=== PATIENT | female | born 1945 | race Caucasian/White ===

== ENCOUNTER 2024-03-18 13:03 | Emergency (ER) | payer OTHER, SELFPAY ==
--- NOTE | 2024-03-18 13:06 | ED.GENMED ---
ED Provider Triage
<Oleksandr Chambers Jr., PA-C - Last Filed: 03/18/24 13:07>
-
Patient seen by provider in Triage?: Seen in Triage
Attestation: A medical screening examination has been initiated by a qualified medical provider. Based on the assessment performed at this time, it has been determined that an emergent medical condition may exist and the patient has been informed
that further medical evaluation and possible additional diagnostic testing may be needed.
HPI: 78-year-old female presenting to the emergency department with a short episode of central chest pain lasting for roughly 10 minutes. Fully resolved at this point. Given aspirin en route. Plan for cardiac assessment.
GENERAL: Alert , in no apparent distress
EYE: No visual abnormalities.
NECK: Trachea midline
ENT: No visible abnormalities.
LUNGS: No acute respiratory distress
NEUROLOGICAL: Alert and oriented
SKIN: Skin intact. No visible changes.
MUSCULOSKELETAL: Moving extremities normally
PSYCH: Normal and appropriate interaction.
This is a medical evaluation conducted in person to initiate diagnostic evaluation and provide initial therapeutics. Please see further documentation by the treating clinician.
History of Present Illness
<Oleksandr Chambers Jr., PA-C - Last Filed: 03/18/24 13:07>
General
Chief Complaint: Chest Pain
Time Seen by Provider: 03/18/24 15:03
<Dom Patterson DO - Last Filed: 03/18/24 22:17>
History of Present Illness
History of Present Illness:
Agreed HPI by Mohsen Chambers
Past History
<Oleksandr Chambers Jr., PA-C - Last Filed: 03/18/24 13:07>
Past History
ED Past Medical History: None
ED Past Surgical History: Gynecological
Social History
Tobacco: Non-smoker
<Dom Patterson DO - Last Filed: 03/18/24 22:17>
Social History
Alcohol: None
Drug: None
Personal: Partner
Living: with family
Review of Systems
<Dom Patterson, DO - Last Filed: 03/18/24 22:17>
Review of Systems
Allergies reviewed?: Yes
All Other Systems: Not applicable
Constitutional: Reports no symptoms
EENT: Reports no symptoms
Respiratory: Reports no symptoms
Cardiac: Reports chest pain
ABD/GI: Reports no symptoms
: Reports no symptoms
Musculoskeletal: Reports no symptoms
Skin: Reports no symptoms
Neurological: Reports no symptoms
Endocrine: Reports no symptoms
Hematologic/Lymphatic: Reports no symptoms
Psychiatric: Reports no symptoms
Phy Exam
<Dom Patterson, DO - Last Filed: 03/18/24 22:17>
Physical Exam
Physical Exam:
Insert physical
Physical Exam
General: no apparent distress, not acutely ill
Neck: supple. no meningeal signs. normal posterior pharynx
Heart: s1/s2 regular rate and rhythm, no murmur. equal radial
pulses.
HEENT: Pupils equal round reactive to light, EOMI
Lungs: no acute respiratory distress. clear bilaterally
Abdomen: normal bowel sounds. not tender. no CVAT
Neuro: alert and oriented. no focal neurological deficits cranial nerves II through XII intact
Skin: no rash
Psychiatric: well kept. interactive and cooperative
Extremities: no edema. no calf tenderness. negative homans. good distal pulses
Scores
<Dom Patterson, DO - Last Filed: 03/18/24 22:17>
Heart Score for Chest Pain Patients
STEMI patient?: No
History: Slightly or Non-Suspicious
ECG: Normal
Age: >/= 65 years
Risk Factors: No Risk Factors
Troponin: </= Normal Limit
Heart Score for Chest Pain Patients: 2
Heart Score Risk: 2.5% MACE over next 6 weeks
Course
<Oleksandr Chambers Jr., PA-C - Last Filed: 03/18/24 13:07>
Orders/Labs/Results
Orders:
Orders
03/18/24
Electrocardiogram (*1) Stat
Comment: DONE EMR
03/18/24 13:06
Electrocardiogram (*1) Urgent
Reason for Study: Chest Pain
EKG- Treatment ONCE
EKG- Treatment ONCE
CR Chest - 2 Views Urgent
Comment:
Reason For Exam: cp
03/18/24 13:23
Complete Blood Count/With Diff Urgent
Comprehensive Metabolic Panel Urgent
Magnesium Urgent
Troponin I Urgent
03/18/24 15:33
Troponin I Urgent
Abnormal Lab Results
03/18/24
13:23
WBC 4.2 L 10^3/uL
(4.8-10.8)
RBC 4.14 L 10^6/uL
(4.20-5.40)
Immature Gran % 0.7 H %
(0-0.5)
Monocytes % 15.4 H %
(1.7-9.3)
03/18/24 13:23
03/18/24 13:23
Vital Signs
Initial and Last Documented VS:
Initial Vital Signs
Temp Pulse Resp BP Pulse Ox
97.7 F 82 18 156/88 96
03/18/24 13:07 03/18/24 13:07 03/18/24 13:07 03/18/24 13:07 03/18/24 13:07
Last Documented Vital Signs
Temp Pulse Resp BP Pulse Ox
97.7 F 82 18 156/88 96
03/18/24 13:07 03/18/24 13:07 03/18/24 13:07 03/18/24 13:07 03/18/24 13:07
<Dom Patterson, DO - Last Filed: 03/18/24 22:17>
Orders/Labs/Results
Orders:
Orders
03/18/24
Electrocardiogram (*1) Stat
Comment: DONE EMR
03/18/24 13:06
Electrocardiogram (*1) Urgent
Reason for Study: Chest Pain
EKG- Treatment ONCE
EKG- Treatment ONCE
CR Chest - 2 Views Urgent
Comment:
Reason For Exam: cp
03/18/24 13:23
Complete Blood Count/With Diff Urgent
Comprehensive Metabolic Panel Urgent
Magnesium Urgent
Troponin I Urgent
03/18/24 15:33
Troponin I Urgent
Abnormal Lab Results
03/18/24
13:23
WBC 4.2 L 10^3/uL
(4.8-10.8)
RBC 4.14 L 10^6/uL
(4.20-5.40)
Immature Gran % 0.7 H %
(0-0.5)
Monocytes % 15.4 H %
(1.7-9.3)
03/18/24 13:23
03/18/24 13:23
Vital Signs
Initial and Last Documented VS:
Initial Vital Signs
Temp Pulse Resp BP Pulse Ox
97.7 F 82 18 156/88 96
03/18/24 13:07 03/18/24 13:07 03/18/24 13:07 03/18/24 13:07 03/18/24 13:07
Last Documented Vital Signs
Temp Pulse Resp BP Pulse Ox
97.7 F 82 18 156/88 96
03/18/24 13:07 03/18/24 13:07 03/18/24 13:07 03/18/24 13:07 03/18/24 13:07
<Dom Patterson DO - Last Filed: 03/18/24 22:17>
MDM/Problems Addressed
Differential Diagnosis Includes:
ACS, PE, pneumonia
MDM/Problems Addressed:
78-year-old female with chest pain, unlikely ACS. Serial troponins negative. Normal EKG. Doubt PE. Stable for discharge and follow-up with cardiology.
<Dom Patterson DO - Last Filed: 03/18/24 22:17>
*Radiology
Radiology exam reviewed: preliminary read by ED provider (cxr nad)
*Pulse Oximetry
Patient hypoxic: no
*EKG
Interpreted by ED Provider?: Yes
EKG Intrepretation Date: 03/18/24
EKG Intrepretation Time: 13:15
Interpretation: abnormal
Comparison EKG: no changes
Heart Rate: 73
Rate: normal
Rhythm: sinus and PVC's
[place]: normal axis
Interval: normal interval
QRS Pattern: normal QRS
Ischemia: no ischemia
*Critical Care Note
Total Time (30-74mins, 75-104mins- exclusive of procedures): Not Applicable
ED Attending Note
<Oleksandr Chambers Jr. PASharon - Last Filed: 03/18/24 13:07>
-
Portions of this chart may have been created with voice recognition software.� Occasional wrong word or��sound alike� substitutions may have occurred due to the inherent limitations of voice recognition software.
Discharge Plan
Departure
Patient Disposition: Home (Routine Discharge)
Date of Disposition: 03/18/24
Time of Disposition: 16:18
Patient with high blood pressure during this ER visit?: Yes
Condition: Good
Discharge Problem:
Chest pain
Instructions: Chest Pain CBC Follow Up, BLOOD PRESSURE
Referrals:
Kermit Chadwick MD [Family Provider] -
Interventions
Interventions:
*Risk Screen - Suicide Last Done: 03/18/24 16:34
*General Assessment Last Done: 03/18/24 16:41
*Neglect/Abuse Screening Last Done: 03/18/24 16:34
ED- Fall Risk Assessment Last Done: 03/18/24 16:41
*ED COVID-19 Vaccine History Last Done: 03/18/24 16:41
*Nursing Disposition Last Done: 03/18/24 16:41
ED- Cardiac Assessment Last Done: 03/18/24 16:33
Discharge Date and Time
Discharge Date/Time: 03/18/24 16:42
Print Language: BAHAMIAN
[2024-03-18 13:07] VITALS: BP 156/88
[2024-03-18 13:44] LABS: % Basophils 0.5 % (0-2); % Eosinophils 2.2 % (0-6); % Immature Granulocytes 0.7 % (0-0.5); % Lymphocytes 30.5 % (20.5-51.1); % Monocytes 15.4 % (1.7-9.3); % Neutrophils 50.7 % (42.2-75.2); Absolute Eosinophils 0.1 10^3/uL (0-0.7); Absolute Lymphocytes 1.3 10^3/uL (1.2-3.4); Absolute Monocytes 0.6 10^3/uL (0.1-0.6); Absolute Neutrophils 2.1 10^3/uL (1.4-6.5); Hematocrit 38.8 % (37.0-47.0); Hemoglobin 12.8 g/dL (12.0-16.0); Mean Corpuscular Hgb 30.9 pg (27.0-31.0); Mean Corpuscular Volume 93.7 fL (81.0-99.0); Mean Platelet Volume 8.9 fL (7.4-10.4); Nucleated Red Blood Cells % 0 %; Platelet Count 186 10^3/uL (130-400); Red Blood Cell Count 4.14 10^6/uL (4.20-5.40); Red Cell Dist. Width 13.3 % (11.5-14.5); White Blood Cell Count 4.2 10^3/uL (4.8-10.8)
[2024-03-18 13:53] LABS: ALT (SGPT) 20 U/L (0-35); AST (SGOT) 23 U/L (14-36); Albumin 3.8 g/dl (3.5-5.0); Alkaline Phosphatase 78 U/L (38-126); Blood Urea Nitrogen 17 mg/dl (7-17); Calcium 8.7 mg/dl (8.4-10.2); Carbon Dioxide 29 mmol/L (22-30); Chloride 103 mmol/L (98-107); Glucose 95 mg/dl (70-99); Magnesium 2.2 mg/dl (1.6-2.3); Potassium 4.8 mmol/L (3.5-5.1); Sodium 138 mmol/L (135-145); Total Bilirubin 0.6 mg/dl (0.2-1.3); Total Protein 6.5 g/dl (6.3-8.2); eGFR > 60.00
[2024-03-18 14:05] LABS: Troponin I < 0.012 ng/ml
[2024-03-18 16:12] LABS: Troponin I < 0.012 ng/ml
== END 2024-03-18 16:42 | disposition home or self-care (01) ==
LOC: EMR 13:03
PROVIDERS: Physician Assistant; EMERGENCY PHYSICIAN Emergency Medicine; FAMILY PHYSICIAN Internal Medicine
DX: R07.89 Other chest pain (principal); I49.3 Ventricular premature depolarization
CPT/HCPCS: 99283; 71046; 80053; 83735; 84484; 85025; 93005

== ENCOUNTER → 2024-04-30 13:29 | Outpatient (REF) | payer OTHER, SELFPAY | LOC: RCS 13:29 | PROVIDERS: ATTENDING PHYSICIAN Internal Medicine Cardiovascular Disease; FAMILY PHYSICIAN Internal Medicine | DX: R07.89 Other chest pain (principal); K21.9 Gastro-esophageal reflux disease without esophagitis | CPT/HCPCS: 93306 ==

== ENCOUNTER → 2024-05-02 08:39 | Outpatient (REF) | payer OTHER, SELFPAY ==
--- NOTE | 2024-05-02 10:38 | CARDSERVLU ---
Echocardiogram with [facility] completed after protocol screening completed. Allergies verified.
Patent IV site: __Left arm 22 G PC inserted first attempt, site clear___
IV site flushed with 0.9% NaCl pre and post administration.
Diluted bolus method utilized to enhance visualization of ventricular florian.
Total volume given: _5___ mL
Patient tolerated all procedures well without complications.
Heplock D/c ed at 1029, site clear, no redness, no edema. Pressure held, no bleeding. 2x2 applied and taped. Pt offers no complaints.
== END ==
LOC: RCS 08:39
PROVIDERS: ATTENDING PHYSICIAN Internal Medicine Cardiovascular Disease; FAMILY PHYSICIAN Internal Medicine
DX: R07.89 Other chest pain (principal); K21.9 Gastro-esophageal reflux disease without esophagitis; R94.31 Abnormal electrocardiogram [ECG] [EKG]; E78.00 Pure hypercholesterolemia, unspecified
CPT/HCPCS: 93017; 93350; Q9950